=== PATIENT | male | born 1950 | race Caucasian/White ===

== ENCOUNTER 2016-12-05 15:31 | Observation (INO) | payer MEDICARE ==
[~2016-12-05] VITALS: Ht 177.8 cm; Wt 111.3 kg
[~2016-12-05 15:31] MED LIST: ADULT LOW DOSE81 MG PO; ALDACTONE 25MG25 MG PO; ALLOPURINOL300 MG PO; BISOPROLOL 5MG T5 MG PO; FUROSEMIDE20 MG PO; K-DUR 20MEQ TA20 MEQ PO; KLOR-CON M2020 ME1 PO; LASIX 40MG. TAB40 MG PO; LEVOCETIRIZINE D5 MG PO; LEXAPRO 20 MG T20 MG PO; LIPITOR40 MG PO; METFORMIN 500M500 M1 PO; PIOGLITAZONE HC15 MG PO; SYMBICORT 10.10.2 ML IH; ZAROXOLYN 2.5M2.5 MG PO
--- OUTSIDE RECORDS SUMMARY | 2016-12-05 16:22 | External Medical Summary Rpt ---
Author Author ZACKARY Address Unknown Phone Purpose Continuity of Care Document - through 2016 Problems Code Diagnosis DOS Provider Status N18.3 CHRONIC KIDNEY DISEASE, STAGE 3 (MODERATE)
--- OUTSIDE RECORDS SUMMARY | 2016-12-05 16:22 | External Medical Summary Rpt ---
Author Author ZACKARY Address Unknown Phone [email or web address] Purpose Continuity of Care Document - through 2016 Problems Code Diagnosis DOS Provider Status N18.3 CHRONIC KIDNEY DISEASE, STAGE 3 (MODERATE)
--- OUTSIDE RECORDS SUMMARY | 2016-12-05 16:23 | External Medical Summary Rpt ---
Author Author ZACKARY Pastor, ZACKARY Pastor Organization [employer] Address Unknown Phone Unavailable
--- OUTSIDE RECORDS SUMMARY | 2016-12-05 16:23 | External Medical Summary Rpt ---
Demographics Preferred Language Spanish Marital Status Unknown Baptism Affiliation Unknown Race Unknown Ethnic Group Unknown Author Author ZACKARY Address Unknown Phone Immunization No patient found.
--- OUTSIDE RECORDS SUMMARY | 2016-12-05 16:23 | External Medical Summary Rpt ---
Author Author [employer] Organization [employer] Address Unknown Phone Unavailable Purpose Continuity of Care Document - through 2016
--- OUTSIDE RECORDS SUMMARY | 2016-12-05 16:23 | External Medical Summary Rpt ---
Demographics Preferred Language Lithuanian Marital Status Unknown Sabianist Affiliation Unknown Race Unknown Ethnic Group Unknown Author Author ZACKARY Address Unknown Phone Immunization No patient found.
[2016-12-05 17:12] VITALS: BP 97/53
[2016-12-05] MEDS ORDERED: LIPITOR20 MG PO (17:28)
[2016-12-05] MEDS ORDERED: SYMBICORT1 AER IH (17:32)
[2016-12-05] MEDS ORDERED: BYDUREON2 MG SC ×4 (17:35→21:55)
[2016-12-05] MEDS ORDERED: METOLAZONE 5MG T5 MG PO (17:37)
[2016-12-05] MEDS ORDERED: INVOKANA300 MG PO (17:38)
[2016-12-05 17:44] VITALS: BP 97/53
--- NOTE | 2016-12-05 17:51 | ACUTE CARE PROGRESS NOTE (QUA) ---
Progress Notes Subjective Date 12/05/16 Time 1747 Note See [facility] H&P. Fatigue, malaise, dehydration, hypotension. Kown CAD, diabetes. Objective Findings Last VS-Temp:94.9 B/P:97/53 Pulse:95 Resp:91 SaO2:91 ROOM AIR Last weight lbs:245 oz:5 K.273 Method:Bed Scales Assessment/Plan Problem List 1. Diabetes type 2, uncontrolled Status: Chronic 2. Dehydration 3. Fatigue 4. Hypotension Plan: see orders This inpt stay is expected to cross 2 MNs from start of care Yes at 1750
--- NOTE | 2016-12-05 17:55 | RADIOLOGY REPORT PS360 ---
CHEST(2 VIEWS-NOT PORTABLE) HISTORY: Cough, fatigue and dehydration fatigue, dehydration ORDERING PHYSICIAN: Majo Pedro MD PATIENT AGE: 66 years COMPARISON: 11/11/2015 FINDINGS: Prior median sternotomy/CABG. Normal heart size. There are chronic changes in the left lung base. No lobar consolidation or collapse. Right lung is clear. Mild degenerative changes thoracic spine. IMPRESSION: Postsurgical and chronic changes, no acute finding
[2016-12-05 18:37] LABS: LYMPH # 2.2 K/mm3 (0.7-4.5)
[2016-12-05 18:50] LABS: HEMOGLOBIN 19.7 g/dL (14.1-18.0)
[2016-12-05 20:18] VITALS: BP 116/79
[2016-12-05 20:25] VITALS: BP 115/74; BP 116/79
[2016-12-05 23:52] VITALS: BP 115/74
[2016-12-06] VITALS (8 sets, daily range): BP systolic 103–125; BP diastolic 58–73
--- NOTE | 2016-12-06 08:46 | ACUTE CARE PROGRESS NOTE (QUA) ---
Progress Notes Subjective Date 12/06/16 Time 0745 Note Pt resting this morning with cpap in place, states he slept well overnight. He denies any pain, chest pain, or SOB. He has been up to void several times overnight. He reports that he no longer feels lightheaded or dizzy when ambulating. He has no current complaint. Objective Findings Last VS-Temp:97.5 B/P:125/66 Pulse:92 Resp:20 SaO2:94 ROOM AIR Last weight lbs:245 oz:5 K.273 Method:Bed Scales 12/05/16 CXR: 1. Postsurgical and chronic changes, no acute finding. Exam General appearance: alert, awake, no acute distress, cpap in place Cardiovascular: regular rate & rhythm, normal peripheral pulses Respiratory: CTAB A&P ABD: non-distended, no rebound, soft, no tenderness, no guarding, no organomegaly, no palpable mass, bowel sounds present Extremities: moves all, no peripheral edema, warm, no calf tenderness Neuro: alert, oriented, speech clear, no focal deficit Reviewed: medications, vital signs, lab results, radiology report, nursing notes Assessment/Plan Problem List 1. Diabetes type 2, uncontrolled Status: Chronic 2. Dehydration 3. Fatigue 4. Hypotension Patient condition Improving Plan: Pt seems to be improved. BP has been WNL overnight. Will continue current care with further per Dr. Pedro. This inpt stay is expected to cross 2 MNs from start of care Yes at 0859
[2016-12-06] MEDS ORDERED: FUROSEMIDE 40MG40 M1 PO (08:49)
[2016-12-06] MEDS ORDERED: K-DUR 2020 MEQ PO (08:51)
[2016-12-06 13:22] LABS: LYMPH # 2.2 K/mm3 (0.7-4.5); LYMPH % 23.2 % (10-50)
--- NOTE | 2016-12-06 14:38 | RADIOLOGY REPORT PS360 ---
PROCEDURE: 2-D M-mode and color Doppler study INDICATIONS FOR THE TEST: Chest pain+ COPD+ Heart Murmur Tobacco Smoking Palpitations Fatigue+ Syncope Edema Hypertension Diabetes Mellitus+ Rheumatic Fever SOB [place] Obesity+Hyperlipidemia Family History HD Additional History CAD PATIENT INFORMATION HEIGHT: 70 WEIGHT: 245 GENDER: Male B/P: 97/53 2-D/M-MODE INTERPRETATION: 2-D MEASUREMENTS OBSERVED VALUES IN CMS Right Ventricular Dimension (RVDd) 2.1 Interventricular Septum (Thickness)(IVsd) 1.4 Left Ventricular Internal Dimensions(LVIDd) 6.2 Left Ventricular Posterior Wall (Thickness)(LVPWd) 1.2 Aortic Root 3.8 Aortic Cusp Separation 1.9 Left Atrial Dimensions (LAD) 3.4 2D 1. This is technically difficult study because of the patient's factor and poor acoustic windows. 2. The left atrium is mildly enlarged, left ventricle is normal size, there is mild concentric left ventricular hypertrophy, visually estimated ejection fraction of 55% with no obvious regional wall motion abnormality, endocardial surfaces are poorly visualized, there is abnormal septal motion. 3. The right atrium is mildly enlarged, right ventricle is moderately enlarged with normal contractility. 4. The aortic valve is minimally thickened and fibrosed. 5. The mitral and tricuspid valve leaflets are minimally thickened. 6. No significant pericardial effusion noted. 7. Pulmonic valve is poorly visualized. DOPPLER INTERROGATION: Doppler interrogation of the aortic mitral and tricuspid valvular presence of mild mitral and tricuspid regurgitation, tricuspid regurgitant jet velocity insufficient for calculation of the right ventricular systolic pressure, grade 1 diastolic dysfunction seen without tissue Doppler evidence of raised left atrial pressure. CONCLUSION: 1. Technically difficult study because of the patient's factor and poor acoustic windows. 2. Biatrial enlargement, normal left ventricular size, mild concentric left ventricular hypertrophy, visually estimated ejection fraction 55% with no obvious regional wall motion abnormality, endocardial surfaces are poorly visualized, there is abnormal septal motion, grade 1 diastolic dysfunction seen without tissue Doppler evidence of raised left atrial pressure. 3. Moderately enlarged right ventricle with normal contractility. 4. Mild mitral and tricuspid regurgitation. 5. No significant pericardial effusion noted.
[2016-12-07 03:56] VITALS: BP 104/68
[2016-12-07 06:37] LABS: LYMPH # 2.2 K/mm3 (0.7-4.5); LYMPH % 31.3 % (10-50)
[2016-12-07 08:25] VITALS: BP 99/69
--- NOTE | 2016-12-07 08:43 | ACUTE CARE PROGRESS NOTE (QUA) ---
Progress Notes Subjective Date 12/07/16 Time 0730 Note Pt sitting up at side of bed eating breakfast. Pt reports he feels much better today, has been voiding normally with BM x 1. He denies weakness or lightheadedness. He questions if he will go home today. Objective Findings Last VS-Temp:97.9 B/P: 99/69 Pulse:83 Resp:18 SaO2:91 OXYGEN Last weight lbs: 245 oz: 5 K.273 Method: Bed Scales 12/06/16 ECHO: 1. Technically difficult study because of the patient's factor and poor acoustic windows. 2. Biatrial enlargement, normal left ventricular size, mild concentric left ventricular hypertrophy, visually estimated ejection fraction 55% with no obvious regional wall motion abnormality, endocardial surfaces are poorly visualized, there is abnormal septal motion, grade 1 diastolic dysfunction seen without tissue Doppler evidence of raised left atrial pressure. 3. Moderately enlarged right ventricle with normal contractility. 4. Mild mitral and tricuspid regurgitation. 5. No significant pericardial effusion noted. Exam General appearance: alert, awake, no acute distress Cardiovascular: regular rate & rhythm, normal peripheral pulses Respiratory: CTAB A&P ABD: no rebound, soft, no tenderness, no guarding, no organomegaly, bowel sounds present, obese Extremities: moves all, no peripheral edema, warm, no calf tenderness Neuro: alert, oriented, speech clear, no focal deficit Reviewed: medications, vital signs, lab results, radiology report, nursing notes Assessment/Plan Problem List 1. Diabetes type 2, uncontrolled Status: Chronic 2. Dehydration 3. Fatigue 4. Hypotension Patient condition Improving, Stable Plan: per Dr. Pedro This inpt stay is expected to cross 2 MNs from start of care Yes (PEBBLES DORAN APRN) Subjective Date 12/07/16 Time 0931 Objective Findings Laboratory Tests 12/07/16 0612: POC Glucose 133 H 12/07/16 0604: Sodium 136, Potassium 3.4 L, Chloride 95 L, Carbon Dioxide 36 H, BUN 32 H, Creatinine 1.3, Estimated Creat Clear 88, Estimated GFR (MDRD) 55, Glucose 140 H, Calcium 8.8, WBC 7.1, RBC 5.87, Hgb 18.0, Hct 50.7, MCV 86.3, RDW 13.1, Plt Count 131 L, MPV 8.5, Gran % 56.2, Gran # 4.0, Lymphocytes % 31.3, Monocytes % 10.0 H, Eosinophils % 1.6, Basophils % 0.9, Lymphocytes # 2.2, Monocytes # 0.7, Eosinophils # 0.1, Basophils # 0.1, PUBS MCHC 35.4, MCH 30.6 12/06/16 2011: POC Glucose 255 H 12/06/16 1712: POC Glucose 179 H 12/06/16 1250: Sodium 131 L, Potassium 3.2 L, Chloride 89 L, Carbon Dioxide 32, BUN 39 H, Creatinine 1.5 H, Estimated Creat Clear 76, Estimated GFR (MDRD) 47, Glucose 203 H, Calcium 9.4, WBC 9.6, RBC 6.36 H, Hgb 19.0 *H, Hct 53.6 H, MCV 84.3, RDW 13.0, Plt Count 165, MPV 8.1, Gran % 66.4, Gran # 6.3, Lymphocytes % 23.2, Monocytes % 8.7, Eosinophils % 1.0, Basophils % 0.8, Lymphocytes # 2.2, Monocytes # 0.8, Eosinophils # 0.1, Basophils # 0.1, PUBS MCHC 35.0, MCH 29.5 12/06/16 1210: POC Glucose 227 H Last VS-Temp:97.9 B/P:99/69 Pulse:83 Resp:18 SaO2:91 OXYGEN Last weight lbs:245 oz:5 K.273 Method:Bed Scales Assessment/Plan Problem List 1. Diabetes type 2, uncontrolled Status: Chronic 2. Dehydration 3. Fatigue 4. Hypotension 5. Electrolyte imbalance Status: Acute 6. Hypokalemia Status: Acute 7. COPD (chronic obstructive pulmonary disease) Status: Chronic Patient condition Improving Plan: decrease IV. See orders. (Majo Pedro MD) at 0842 at 0932
--- NOTE | 2016-12-07 09:57 | PHARMACY CLINIC NOTE ---
Patient Demographics Patient Demographics Admission date: 12/05/16 Date: 12/07/16 Time: 0956 Allergies Coded Allergies: Muscle Relaxants (11/07/15) HEIGHT- FT: 5 IN: 10.00 K.273 VTE General Information Labs: Laboratory Tests 12/07 12/06 0604 1250 Hematology Hgb (14.1 - 18.0 g/dL) 18.0 19.0 *H Hct (42.0 - 52.0 %) 50.7 53.6 H Plt Count (142 - 424 K/mm3) 131 L 165 Disclaimer The following section includes nursing documentation that has been pulled in for pharmacy review. Patient's VTE score: 3 Patient's VTE Risk: LOW RISK Clinical trial participant? No VTE prophylaxis [id number] VTE prophylaxis ordered? Yes Type of prophylaxis/treatment: BECKY at 0956
[2016-12-07 12:30] VITALS: BP 107/78
[2016-12-07 16:30] VITALS: BP 109/69
[2016-12-07 19:45] VITALS: BP 114/74
[2016-12-07 20:15] VITALS: BP 114/74
[2016-12-08 00:07] VITALS: BP 132/74
[2016-12-08 04:16] VITALS: BP 137/78
[2016-12-08 07:43] VITALS: BP 117/72
[2016-12-08 08:17] VITALS: BP 117/72
--- NOTE | 2016-12-08 09:05 | ACUTE CARE PROGRESS NOTE (QUA) ---
Progress Notes Subjective Date 12/08/16 Time 0901 Note Bored and ready for discharge. Potassium was 3.5 yesterday, but 3.2 today. Other labs OK. Echo reviewed. Patient/family reports: no complaints Objective Findings Last VS-Temp:97.7 B/P:117/72 Pulse:84 Resp:20 SaO2:93 ROOM AIR Last weight lbs:245 oz:5 K.273 Method:Bed Scales Exam General appearance: alert, no acute distress Eyes: conjunctiva clear, PERRLA ENT: mucous membranes moist Cardiovascular: regular rate & rhythm Respiratory: clear to auscultation ABD: soft, no tenderness Genitourinary: normal voiding & quantity Extremities: edema (minimal) Skin: dry, intact, normal color Neuro: alert, intact, no deficit, speech clear Reviewed: medications, vital signs, lab results, radiology report Assessment/Plan Problem List 1. Diabetes type 2, uncontrolled Status: Chronic 2. Dehydration 3. Fatigue 4. Hypotension 5. Electrolyte imbalance Status: Acute 6. Hypokalemia Status: Acute 7. COPD (chronic obstructive pulmonary disease) Status: Chronic Patient condition Improving Plan: initiate discharge plan This inpt stay is expected to cross 2 MNs from start of care Yes at 0905
[2016-12-08] MEDS ORDERED: K-DUR 20MEQ TA20 MEQ PO (09:09)
[2016-12-08 09:45] VITALS: BP 117/72
== END 2016-12-08 09:50 | disposition home or self-care (01) ==
LOC: 2ND 15:31
PROVIDERS: Family Medicine
DX: E86.0 Dehydration (principal); J44.9 Chronic obstructive pulmonary disease, unspecified; E11.59 Type 2 diabetes mellitus with other circulatory complications; I95.2 Hypotension due to drugs
CPT/HCPCS: G0378